=== PATIENT | male | born 2000 | race African-American/Black ===

== ENCOUNTER 2019-10-03 18:07 | Emergency (ER) | payer OTHER ==
[2019-10-03 18:12] VITALS: BP 112/72; TEMP 98.1
[2019-10-03 19:03] VITALS: PULSE 79
== END 2019-10-03 19:03 | disposition home or self-care (01) ==
LOC: COL.ER 18:07
DX: S60.222A Contusion of left hand, initial encounter (principal); W22.8XXA Striking against or struck by other objects, initial encounter; Y92.009 Unspecified place in unspecified non-institutional (private) residence as the place of occurrence of the external cause